=== PATIENT | male | born 1955 | race Caucasian/White ===

== ENCOUNTER 2021-09-26 16:55 | Outpatient (REF) | payer MEDICARE, BC, SELFPAY ==
[2021-09-26 19:47] LABS: Anion Gap 8.6 mmol/L (3-11); BUN 11 mg/dL (7-18); CO2 28.4 mmol/L (21.0-32.0); CREATININE 0.8 mg/dL (0.70-1.30); Calcium 8.8 mg/dL (8.5-10.1); Calculated LDL 124 mg/dL (<100); Chloride 103 mmol/L (98-107); Cholesterol 208 mg/dL (<200); Glucose 94 mg/dL (74-106); HDL Cholesterol 75 mg/dL (40-60); Potassium 4.1 mmol/L (3.5-5.1); Sodium 140 mmol/L (136-145); TSH 1.35 uIU/mL (0.36-3.74); Triglyceride 49 mg/dL (<150)
== END 2021-09-26 16:56 | disposition home or self-care (01) ==
LOC: NCHCN 16:55
PROVIDERS: PCP Physician Assistant Medical; Visit Provider Internal Medicine
DX: R03.0 Elevated blood-pressure reading, without diagnosis of hypertension (principal); D75.1 Secondary polycythemia; T14.90XA Injury, unspecified, initial encounter; Z72.89 Other problems related to lifestyle; X58.XXXA Exposure to other specified factors, initial encounter; F10.10 Alcohol abuse, uncomplicated; I10 Essential (primary) hypertension; E78.5 Hyperlipidemia, unspecified
CPT/HCPCS: 80048; 80061; 84443

== ENCOUNTER 2021-12-29 17:24 | Outpatient (REF) | payer MEDICARE, BC, SELFPAY ==
[2021-12-29 19:13] LABS: Abs Immature Grans 0.01 10^3/uL (0.0-0.06); Absolute Basophil Count 0.03 10^3/uL (0.0-0.2); Absolute Eosinophil Count 0.06 10^3/uL (0.0-0.7); Absolute Lymphocyte Count 0.93 10^3/uL (1.2-3.4); Absolute Monocyte Count 0.55 10^3/uL (0.1-0.8); Absolute Neutrophil Count 3.52 10^3/uL (1.2-6.7); Basophils % 0.6; Eosinophils % 1.2; HCT 45.9 % (40.0-50.0); HGB 16.6 g/dL (13.5-17.5); Immature Grans % 0.2; Lymphocytes % 18.2; MCH 32.7 pg (27.0-33.0); MCHC 36.2 % (32.0-36.0); MCV 91 fL (80-95); MPV 9.5 fL (8.0-11.0); Monocytes % 10.8; Platelet Count 299 10^3/uL (130-400); RBC 5.07 10^6/uL (4.36-5.78); RDW 12.8 % (11.8-14.1); RDW-SD 42.1 fL
== END 2021-12-29 17:25 | disposition home or self-care (01) ==
LOC: NCHCN 17:24
PROVIDERS: PCP Physician Assistant Medical; Visit Provider Nurse Practitioner Family
DX: H92.20 Otorrhagia, unspecified ear (principal)
CPT/HCPCS: 85025; 85610; 85730

== ENCOUNTER 2023-04-06 19:07 | Outpatient (REF) | payer MEDICARE, BC, SELFPAY ==
[2023-04-06 18:53] LABS: HCT 48.3 % (40.0-50.0); HGB 17.3 g/dL (13.5-17.5); MCH 32.5 pg (27.0-33.0); MCHC 35.8 % (32.0-36.0); MCV 91 fL (80-95); MPV 9.8 fL (8.0-11.0); Platelet Count 291 10^3/uL (130-400); RBC 5.33 10^6/uL (4.36-5.78); RDW 12.3 % (11.8-14.1); RDW-SD 40.8 fL; WBC 6.64 10^3/uL (4.4-10.8)
[2023-04-06 19:22] LABS: ALT 69 U/L (16-63); AST 47 U/L (15-37); Albumin 4.2 g/dL (3.4-5.0); Alkaline Phosphatase 78 U/L (46-116); Anion Gap 6.5 mmol/L (3-11); BUN 10 mg/dL (7-18); Bilirubin, Total 0.6 mg/dL (0.2-1.0); CO2 28.5 mmol/L (21.0-32.0); CREATININE 0.9 mg/dL (0.70-1.30); Calcium 9.1 mg/dL (8.5-10.1); Chloride 103 mmol/L (98-107); Estimated GFR 93.03 (mL/min/1.73m2); Ferritin 842 ng/mL (26-388); Glucose 91 mg/dL (74-106); Potassium 3.9 mmol/L (3.5-5.1); Sodium 138 mmol/L (136-145); Total Protein 8.3 g/dL (6.4-8.2)
[2023-04-06 19:37] LABS: Iron 173 ug/dL (65-175); Total Iron Binding Capacity 309 ug/dL (250-450); Transferrin Sat 56 % (20-55)
[2023-04-09 18:05] LABS: Erythropoietin 8.6 mIU/mL (2.6 - 18.5)
== END 2023-04-06 19:08 | disposition home or self-care (01) ==
LOC: NCHCN 19:07
PROVIDERS: PCP Internal Medicine; Visit Provider Internal Medicine
DX: D75.1 Secondary polycythemia (principal); R79.89 Other specified abnormal findings of blood chemistry; F10.20 Alcohol dependence, uncomplicated
CPT/HCPCS: 80053; 82668; 85027; 82728; 83540; 83550

== ENCOUNTER → 2023-05-14 01:34 | Outpatient (CLI) | payer MEDICARE, BC, SELFPAY ==
--- NOTE | 2023-05-14 | DI.MRI_ITS ---
Exam(s) MR LOWER JOINT LT WO EXAM: MR LOWER JOINT LT WO CLINICAL HISTORY: DERANGEMENT OF MEDIAL MENISCUS, M23.309. TECHNIQUE: Multiplanar multisequence MRI was performed. COMPARISON: No exams were available for comparison FINDINGS: The examination is limited due to patient motion artifact. BONES: No evidence of a fracture. Marrow edema seen in the posterior aspect of the lateral tibial pl ateau. JOINTS: There is marked thinning of the articular cartilage in the medial femoral tibial joint with s ubchondral edema in the proximal tibia and medial femoral condyle. There also cartilage defect seen in the lateral femoral tibial joint. There is a moderate joint effusion. There are osteophytes in t he medial and lateral femoral tibial joint. TENDONS: Extensor mechanism: Unremarkable. Medial retinaculum: Unremarkable. Lateral retinaculum: Unremarkable. Popliteus: There is hyperintense signal seen at the musculotendinous junction of the popliteus. Find ings are suspicious for partial tear. MUSCLES: Unremarkable. MENISCI: There is loss of size of the posterior body and posterior horn of the medial meniscus with h yperintense signal seen in the remnant. There does appear to be displacement of meniscal tissue medi ally. There is poor visualization of the root of the lateral meniscus suspicious for tear. The paola ami of the lateral meniscus is unremarkable. SOFT TISSUES: There is a small popliteal cyst. LIGAMENTS: Anterior Cruciate: There is a tear of the anterior cruciate ligament. Posterior Cruciate: There is mild hyperintense signal seen in the proximal posterior cruciate ligamen t suspicious for partial tear. Medial Collateral:There is mild hyperintense signal seen around the medial collateral ligament sugges ting a mild sprain. Lateral Collateral: There is mild hyperintense signal seen around the lateral collateral ligament whi ch may represent a mild sprain. OTHER: IMPRESSION: 1. Tear of the posterior horn and body of the medial meniscus with displacement of meniscal tissue me dially. 2. Anterior cruciate ligament tear. 3. Findings suspicious for partial tear of the posterior cruciate ligament. 4. Hyperintense signal at the musculotendinous junction in the popliteus suspicious for partial tear. 5. Marked arthrosis of the knee particularly involving the medial femoral tibial joint. 6. Moderate joint effusion. 7. Findings suspicious for tear of the root of the lateral meniscus. DATA REPOSITORY:
== END ==
PROVIDERS: PCP Internal Medicine; Visit Provider Internal Medicine
DX: M23.222 Derangement of posterior horn of medial meniscus due to old tear or injury, left knee (principal)
CPT/HCPCS: 73721

== ENCOUNTER 2023-06-01 09:00 | Outpatient (CLI) | payer MEDICARE, BC, SELFPAY ==
--- NOTE | 2023-06-01 08:30 | DI.RAD_ITS ---
Exam(s) XR KNEE LT 3V AP,LAT,JANEL EXAM: XR KNEE LT 3V AP,LAT,JANEL CLINICAL HISTORY: LEFT KNEE PAIN. TECHNIQUE: 2D digital imaging was performed of the left knee. Three images were obtained. AP, late ral and PA tunnel views were obtained. COMPARISON: MR MR LOWER JOINT LT WO from 05/14/2023 FINDINGS: BONES: No acute fracture is present. No bony destructive lesion is seen. JOINTS: There is moderate narrowing of the medial femoral tibial joint. Osteophytes are seen involvi ng all 3 joint compartments. There is a small joint effusion. No loose body. SOFT TISSUE: Vascular calcifications are present. IMPRESSION: Moderately severe degenerative changes of the left knee. DATA REPOSITORY: RADIATION DOSE DELIVERED:
== END 2023-06-01 09:01 | disposition home or self-care (01) ==
LOC: DIORS 09:00
PROVIDERS: PCP Internal Medicine; Referring Provider Internal Medicine; Visit Provider Physician Assistant
DX: M17.12 Unilateral primary osteoarthritis, left knee
CPT/HCPCS: 20610; 73562; 99203; J1040

== ENCOUNTER 2023-06-15 14:58 | Outpatient (CLI) | payer MEDICARE, BC, SELFPAY ==
[2023-06-15 23:38] LABS: Hepatitis B Surface Ag Negative (Negative)
[2023-06-16 00:05] LABS: Hepatitis C Ab w Rflx HCV PCR Negative (Negative)
[2023-06-20 18:32] LABS: Result Summary NEGATIVE; Specimen WB Whole Blood
[2023-06-28 11:39] LABS: JAK2 Sequencing Result see interpretation
== END 2023-06-15 14:59 | disposition home or self-care (01) ==
LOC: LBO 14:59
PROVIDERS: PCP Internal Medicine; Visit Provider Internal Medicine
DX: D75.1 Secondary polycythemia (principal); R94.5 Abnormal results of liver function studies; R74.8 Abnormal levels of other serum enzymes
CPT/HCPCS: 0027U; 36415; 81256; 86803; 87340

== ENCOUNTER → 2023-09-10 02:39 | Outpatient (CLI) | payer MEDICARE, BC, SELFPAY ==
--- NOTE | 2023-09-10 | DI.US_ITS ---
Exam(s) US AAA SCREENING EXAM: US AAA SCREENING CLINICAL HISTORY: HTN I10 AND FH ANEURYSM COMPARISON: No exams were available for comparison FINDINGS: Abdominal Aorta: Proximal: 2.9 cm Mid: 2.5 cm Distal: 2.0 x 2.6 cm Iliacs: Right: 1.4 cm Left: 1.4 cm IMPRESSION: No evidence of abdominal aortic aneurysm. DATA REPOSITORY:
== END ==
PROVIDERS: PCP Internal Medicine; Visit Provider Internal Medicine
DX: Z13.6 Encounter for screening for cardiovascular disorders (principal); I10 Essential (primary) hypertension; Z82.49 Family history of ischemic heart disease and other diseases of the circulatory system
CPT/HCPCS: 76706; 99213

== ENCOUNTER 2023-10-19 01:42 | Outpatient (CLI) | payer MEDICARE, BC, SELFPAY ==
[2023-10-19 11:26] LABS: HGB 17.1 g/dL (13.5-17.5); MCH 33.2 pg (27.0-33.0); MCHC 35.6 % (32.0-36.0); MCV 93 fL (80-95); MPV 9.5 fL (8.0-11.0); Platelet Count 292 10^3/uL (130-400); RBC 5.15 10^6/uL (4.36-5.78); RDW 12.3 % (11.8-14.1); RDW-SD 42.7 fL; WBC 6.04 10^3/uL (4.4-10.8)
[2023-10-19 11:53] LABS: Anion Gap 7.4 mmol/L (3-11); BUN 8 mg/dL (7-18); CO2 31.6 mmol/L (21.0-32.0); CREATININE 0.9 mg/dL (0.70-1.30); Calcium 9.1 mg/dL (8.5-10.1); Chloride 103 mmol/L (98-107); Estimated GFR 93.03 (mL/min/1.73m2); Glucose 98 mg/dL (74-106); Potassium 3.8 mmol/L (3.5-5.1); Sodium 142 mmol/L (136-145)
== END 2023-10-19 01:43 | disposition home or self-care (01) ==
LOC: LBO 01:42
PROVIDERS: PCP Internal Medicine; Visit Provider Student in an Organized Health Care Education/Training Program
DX: M17.12 Unilateral primary osteoarthritis, left knee (principal); Z01.818 Encounter for other preprocedural examination
CPT/HCPCS: 36415; 80048; 85027; 73560; 77073

== ENCOUNTER 2023-10-19 10:43 | Outpatient (CLI) | payer MEDICARE, BC, SELFPAY ==
--- NOTE | 2023-10-19 09:00 | DI.RAD_ITS ---
Exam(s) XR KNEE LT 1V XR STANDING ALIGNMENT EXAM: XR STANDING ALIGNMENT and XR knee LT 1 V CLINICAL HISTORY: left knee DJD. TECHNIQUE: 2D digital imaging was performed. Five images were obtained. COMPARISON: CR XR KNEE LT 3V AP,LAT,JANEL from 06/01/2023 FINDINGS: BONES: Moderately severe degenerative changes are seen in the hips characterized by joint space narro wing and osteophytes. Moderate degenerative changes are seen in the right knee particularly the medi al femoral tibial joint where there is joint space narrowing and osteophytes. Old well corticated os seous density is seen medial to the medial femoral condyle. Tricompartment moderately severe degener ative changes are seen in the left knee characterized by joint space narrowing and osteophytes. Ther e is a small joint effusion. The ankles are well maintained.There is no significant leg length discr epancy. SOFT TISSUE: Vascular calcifications are present. IMPRESSION: Marked osteoarthritis of the knees, left greater than right. DATA REPOSITORY: RADIATION DOSE DELIVERED:
== END 2023-10-19 10:44 | disposition home or self-care (01) ==
LOC: DIORS 10:43
PROVIDERS: PCP Internal Medicine; Referring Provider Internal Medicine; Visit Provider Physician Assistant
DX: M17.12 Unilateral primary osteoarthritis, left knee (principal); Z01.818 Encounter for other preprocedural examination
CPT/HCPCS: 73560; 77073

== ENCOUNTER 2023-10-30 09:44 | Day surgery (SDC) | payer MEDICARE, BC, SELFPAY ==
[2023-10-30] VITALS (30 sets, daily range): BP systolic 87–166; BP diastolic 60–96; PULSE 54–66; RESP 12–19; TEMP 35.8–36.7; O2SAT 95–99; BMI 26.9
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
[2023-10-30] MEDS: Gabapentin 300 MG CAP PO (10:27)
[2023-10-30] MEDS: Acetaminophen 500 MG TAB 1000 MG PO (10:28)
[2023-10-30] MEDS: Celecoxib 200 MG CAP 400 MG PO (10:28)
[2023-10-30] MEDS: Lactated Ringers 1,000 ML 80 ML IV (10:40)
[2023-10-30] MEDS: ceFAZolin 2 GM/50 ML BAG IVPB (12:15)
[2023-10-30] MEDS: TRANEXAMIC ACID/SOD. CHL. 1,000 MG/100 ML BAG 600 MG IVPB (12:25)
--- NOTE | 2023-10-30 12:40 | W.ANESNERVE ---
Nerve Block Single Injection Procedure Date and Time Date Performed: 10/30/23 Procedure Start: 11:40 Location Where Procedure Performed Procedure Location: Day Surgery Unit Reason Performed: Postoperative Analgesia Requesting Provider: Finesse Horton Timeout Performed Timeout Performed: Yes Monitoring Used ECG, Blood Pressure, SpO2 and See EMR for corresponding vital signs Sterility Sterility: Hand Hygiene, Surgical Cap, Surgical Mask, Sterile Gloves and Chlorhexidine Sedation Given During Procedure Sedation Given (Indicate Dose Given): No Sedation given Patient Mental Status Patient Mental Status: Awake Nerve Block 1st Nerve Block: Laterality: Left Block Type: Adductor Canal Ultrasound Image Saved?: Yes Needle / Catheter Used: 100mm SonoPlex II Local Anesthetic Bolus (Indicate Dose Given): Lidocaine used for local infiltration of skin, Injected in 3-5ml increments after negative blood aspiration, Bupivacaine 0.25% Dose:: 10ml and Exparel Dose:: 10ml Additives (Indicate Dose Given): None Ultrasound: Sterile probe cover and gel used Nerve Stimulator: Not Used Paresthesia: None Procedure Tolerated: No Complications and Patient tolerated well Procedure Outcome: Successful Performed By: Juan Osuna
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
--- NOTE | 2023-10-30 14:29 | W.ANESPOSTOP ---
Postoperative Evaluation Date, Time and Location Date Performed: 10/30/23 Time Performed: 14:29 Patient Location: PACU Vital Signs Most Recent Imported Vital Signs: Most Recent Vital Signs Temp Pulse Resp BP Pulse Ox 36.6 C 57 L 13 133/81 98 10/30/23 14:26 10/30/23 14:26 10/30/23 14:26 10/30/23 14:10/30/23 14:26 Pain Score Most Recent Pain Score: Most Recent Pain Score Pain Level 0 10/30/23 14:25 Assessment Mental Status: Awake (Alert & Oriented to Patient Baseline) Airway and Respiratory Function: Patent airway with normal (patient baseline) respiratory exam Cardiovascular Function: Hemodynamically Stable Hydration Status: Adequately Hydrated Nausea & Vomiting: No Nausea or Vomiting Pain: Pt. Denies Any Pain Peripheral Nerve Block: Regional nerve block not resolved at time of post operative discharge
--- NOTE | 2023-10-30 16:21 | IN_ITS ---
PT Notes Visit Reasons: Left knee DJD Physical Therapy Day Surgery Initial Evaluation Date: 10/30/2023 Referring Doctor: Dr. Horton PT Orders: PT CONSULT: Assess for discharge status post Ortho surgery Precautions: WBAT left lower extremity, Patient Profile/Admitting Diagnosis: Patient is 68-year-old male presenting status post elective left TKA on 10/30/2023. Postop uncomplicated. PMHX: CHANTELLE DJD Left knee Left eye trauma From tree falling - damage to his retinaHx of rheumatoid arthritis Pt reports in remission ~15 years - flared after his left RTC surgery seen previously by [facility] RheumatologyErectile dysfunction Wedge compression fracture of T7-T8 vertebra, initial encounter for closed fracture Constipation Polycythemia Alcohol consumption heavy 6-12 beers daily Elevated blood pressure reading without diagnosis of hypertension Bleeding from ear Hematotympanum Surgical History (Updated 10/19/23 @ 10:21 by Yen Sandoval) History of rotator cuff surgery Left Social History/Home Situation: Patient lives with in home with 2 steps to enter with no railing. Patient reports his 2 dogs. He is retired but continues to participate in his [employer] business. He reported the first step is a stone step then second step onto some porch. He reports he has a walk-in tub (patient educated not to submerge in tub at this time). (+)drives. 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 Equipment Owned/DME: No DME at home; nurse issued front wheel walker properly fitted Subjective: Patient reports his left knee feels better than it did 2 days ago. Denies dizziness lightheadedness nausea . Patient's reports she feels comfortable performing the 2 stairs with front wheel walker as instructed. Objective: General Observation: Semireclined on stretcher with Cryo/Cuff in place to left knee; present at bedside agreeable to assessment Mental Status: Alert and oriented x 4 Pain: At rest: 1/10; after ambulation: 3/10 ROM: Within normal limits bilateral upper extremity and right lower extremity Left Lower Extremity: Hip and ankle within normal limits; knee 0 to 98 degrees Strength: Right Upper Extremity: 5/5 Left Upper Extremity: 5/5 Right Lower Extremity: 5/5 Left Lower Extremity: Hip 3- /5, knee: 3 -/5 quad, 2+/5 hamstring, ankle 3/ 5, strong QS (+) lag with LAQ and reduced range SLR Sensation: Intact Bed Mobility/Transfers: Supine to sit supervision Sit to stand supervision Stand to sit supervision Bed to chair supervision with FWW Gait: Ambulated 200 feet with FWW supervision reciprocal pattern decreased step length Stairs: 2 steps with FWW CGA Balance: Static Sitting: Normal Dynamic Sitting: Normal Static Standing: Good with FWW Dynamic Standing: Good- with FWW Special Tests: Mobility Limitations Standardized Measure [facility] 6 clicks Basic Mobility Inpatient Short Form: Raw Score: 23 CMS Score: 11.20% disability Informed Consent/Education: Patient instructed in purpose of PT consult. Packet containing TKA exercise protocol has been given to patient. Education and training on initial set of exercises that can be done at home have been completed with patient. Assessment: Patient presents with clinical signs and symptoms consistent with current/admitting diagnoses that have resulted to mobility limitations, gait instability, generalized weakness, and impairment of motor control as demonstrated by the following impairment level findings: 1. Decreased strength to left knee major muscle groups 2. Impaired standing balance 3. Limitation of joint range of motion in left knee Impairments are contributing to the following functional limitations: 1. Inability to safely ambulate without assistive device 2. Increase completion time for mobility ADL performance 3. Increased fall risk Patient is assessed as a moderate complexity based on the following: History: 68 year-old male with impairment level findings, functional limitations, and past medical history as indicated above Examination: Demonstrable impairment in strength, balance, and mobility level with underlying impairments and functional limitations as documented above Presentation: Stable Decision Making: Low Goals: N/A. Plan of Care/Treatment Plan: N/A. DISCHARGE RECOMMENDATIONS: Home with outpatient PT as scheduled TREATMENT CODE/TIME: 53388, [id number] Thank you for the opportunity to participate in the care of this patient. Please sign an return this page within 30 days if you agree with the above POC. Thank you! Physician Signature Date [facility]
--- NOTE | 2023-10-30 20:33 | ROE_ITS ---
Date of service: 10/30/23 Time of Service: 12:15 Operative Note Operative Note DATE OF PROCEDURE: 10/30/23 PRE-OP DIAGNOSIS: Left Knee Osteoarthritis POST-OP DIAGNOSIS: same PROCEDURE: Left Total Knee Replacement SURGEON: Finesse Horton PLUMBING MANAGER: Yen Sadnoval ANESTHESIA TYPE: Spinal Refer to Anesthesia Record ESTIMATED BLOOD LOSS: 50 PATHOLOGY: none sent TOURNIQUET TIME: 0 COMPLICATIONS: None Patient was transported to: PACU Patient's condition: stable Implants: 1. Depuy Attune Cementless Cruciate Retaining Femoral Component, Size 8 2. Depuy Attune Cementless Fixed Bearing Tibial Component, Size 7 3. Depuy Attune 8x5 CR/FB Poly 4. Depuy Attune Patellar Component, Size 38 Indications: I have seen Sonu in clinic for symptoms of knee arthritis, confirmed with radiographic findings. Niels has exhausted nonoperative methods and was having significant limitations in daily function and desired better function and less pain. I discussed the technical details of a knee replacement. I explained the risks of the procedure to include, but not limited to, bleeding, infection, pain, stiffness, fracture, damage to nerves and vessels, damage to muscles and tendons, loosening, need for repeat procedure, blood clot and cardiopulmonary demise. Despite these risks, he elected to proceed. Findings: There was significant signs of arthritis throughout the knee involving all three compartments. Procedure Description: Niels was greeted in the preoperative holding area where the correct side was identified and marked. The consent was reviewed with the patient and signed. The history and physical was updated. All questions were answered. Preoperative medications were administered: Acetaminophen 1000mg, Celebrex 400mg, and Gabapentin 300mg. An adductor canal block was then administered by the anesthesia team in the PACU. He was taken back to the operating room. A spinal anesthestic was then administered. The patient was placed into the supine position on the operating room table. A nonsterile tourniquet was placed high onto the leg but only used for cementing. Posts were placed for positioning during the procedure. All bony prominences were well padded. Prophylactic antibiotics in the form of Cefazolin were administered. 1g of Tranxemic Acid was given intravenously within 30 minutes of incision. The left leg was then prepped with Chloraprep and draped in a standard fashion with impervious stockinette. A second prep with Chloraprep was performed prior to application of Iodine impregnated skin protection. A timeout to confirm correct identity, side and site, procedure, allergies, anesthesia, and medical concerns was performed. With the knee in some flexion, a midline incision was made overlying the knee. Full thickness skin flaps were raised once the extensor mechanism was encountered. These were raised medially and laterally. Any bleeding was controlled with electrocautery. Once the extensor mechanism was fully exposed, a medial parapatellar arthrotomy was performed in a flexed position. All bleeding from the arthrotomy and the geniculate arteries was coagulated. A medial subperiosteal peel was performed with electrocautery to the midcoronal plane. Due to the significant varus deformity the entire medial tibial plateau was exposed. The fat pad was removed while keeping the patellar tendon protected. The anterior distal femur synovium was removed for later visualization. The ACL and PCL were resected and the anterior horn of the lateral meniscus was transected. The knee was then flexed with the patella everted. Large osteophytes from the tibia were removed. Large osteophytes from the femur were removed. Using a step drill, and based on preoperative templating, the femoral canal was entered. This was done with a step drill without any difficulty. The intramedullary distal femoral cut guide was inserted, set to a 5 degree valgus cut and 9mm cut thickness. The distal femoral cut guide was then held in position and pinned. With the soft tissues protected, the distal cut was performed. This was passed over a few times to ensure a planar cut. I then turned attention to the tibia. The extramedullary guide was placed onto the leg. The distal aspect was slid medial to adjust for position of center of ankle and stay in line with shaft of the tibia. Approximately 3-5 degrees of posterior slope was kept in the proximal cutting guide. The center of the guide was aligned with the PCL. The stylus was used to assess cut thickness. The medial side, most involved side, was set for a 4mm cut. This was then held in position and pinned into place with 2 additional pins and a cross pin for stability. The medial and lateral collateral ligaments were protected and the cut was performed. With this completed, it was assessed and noted to be of appropriate dimensions. The guide was removed. A spacer block was inserted and the knee was brought into e xtension. The 5mm spacer block provided full extension, without hyperextension and with stability of both the medial and lateral collateral ligaments was assessed. The pins from the femur and the tibia were then removed. The distal femur was then sized. The anterior stylus was placed onto the lateral ridge of the anterior femur. This indicated a size 8 femur. The external rotation of the guide was adjusted to 3 degrees to match the epicondylar axis, perpendicular to Spencer?s line. The 4-in-1 cutting guide was the placed. The posterior medial femur cut was evaluated and appeared of g ood thickness. The spacer block was inserted underneath the cutting guide and stability was confirmed in 90 degrees of flexion. An lonnie wing was used to confirm appropriate position of the anterior cut to avoid notching. This cutting guide was ensured to be flush on the cut surface and then pinned into place with headed pins. While protecting the soft tissues, quad tendon, and collateral ligaments, the anterior and posterior cuts were performed with a saw. The central two pins were removed and the posterior and anterior chamfers were cut next. The notch-cutting guide was placed. This was pinned to lateralize the femoral component as much as possible while keeping it flush on the cut surface. This was then pinned into position. A reciprocating saw was used to make the notch cut. A rasp smoothed the cut surfaces. The medial and lateral menisci were removed. A trial femoral component was then inserted, impacted down to the cut surfaces, and the lug holes were drilled. A provisional trial tibial component was placed and the knee was brought through range of motion. There was noted to be excellent extension and flexion. There was no significant instability. The patella was tracking without thumbs. A size 5mm polyethylene component provided the best range of motion and stability with less than 2mm gapping with medial and lateral stress and full extension without significant hyperextension. The tibial cut surface was fully exposed. The tibia was then sized as a 7. The tibia had been previously marked during trialing to correspond to the center of the tibial component to help with rotation. The trial was aligned to this orestes, approximately rotated to the medial 1/3rd of the tibial tubercle. The trial was pinned into place. The tibia was prepared with a reamer and a keel punch and lug holes. The knee was then brought into extension and the patella was measured as 31mm. Using the patellar clamp and cut guide, this was resected to a flat surface with at least 13mm of thickness remaining. The size 38 patella fit the best. This was oriented and then clamped into position. The lugs were drilled. The trial components were removed. The final components were opened on the back table. The periosteal and capsular tissues, especially posteriorly, around the knee were then systematically injected with a periarticular cocktail consisting of 246mg of Ropivacaine, 0.5mg of Epinephrine, 0.08mg of Clonidine, and 30mg of Ketorolac, diluted to 100cc. On the back table, with the implants opened, the cement was mixed. One batch of high viscosity cement was prepared with vacuum assistance. After the cement was ready a small amount was placed on the cut surface of the patella and the patellar button was clamped into position and held. While the cement was hardening, the cementless knee components were placed. Starting with the tibial component, the tibia was subluxed anteriorly and the lug holes of the component were lined up. The tibia was then impacted with an impactor and mallet until the tibial component was in contact with the tibia. The final polyethylene component was inserted. Then, the femoral component was inserted. The lug holes were aligned and the component was impacted into position. The knee was irrigated with Surgiphor Betadine solution. This was allowed to sit in the knee for 3 minutes and then it was irrigated out with saline. After the cement had finally cured, approximately 15min, the clamp was removed from the patella and the knee was taken through range of motion. The patella was tracking with a no-thumbs technique. The capsule was then reapproximated with a No. 1 Vicryl at multiple locations. The capsule was finally closed with a No. 2 Stratafix, barbed suture. The second dosing of 1g TXA was started. Deep tissues were then reapproximated with 0 Vicryl and 2-0 Vicryl. The skin was closed with a running 3-0 Monocryl in a subcuticular fashion. This was reinforced with skin glue. A Mepilex silver dressing was applied along with a [id number] SABINO wrap. A CryoCuff was applied. Niels was transferred to the hospital bed without difficulty an suffering no apparent complication. He has a good prognosis. Physical therapy will start today and without restrictions, weight-bearing as tolerated. Aspirin 81mg BID will be used for DVT prophylaxis.
== END 2023-10-30 16:20 | disposition home or self-care (01) ==
PROVIDERS: PCP Internal Medicine; Visit Provider Student in an Organized Health Care Education/Training Program
PROC: (CPT 27447; principal; 2023-10-30 12:30)
DX: M17.12 Unilateral primary osteoarthritis, left knee (principal); G47.33 Obstructive sleep apnea (adult) (pediatric); D45 Polycythemia vera
CPT/HCPCS: 27447; 76942; 97162; 97530; C1776; C9290; J0665; J0690; J1100; J2001; J2250; J2401; J2405; J2704

== ENCOUNTER 2023-11-12 15:30 | Outpatient (CLI) | payer MEDICARE, BC, SELFPAY ==
--- NOTE | 2023-11-12 09:00 | DI.RAD_ITS ---
Exam(s) XR KNEE LT 1V XR STANDING ALIGNMENT EXAM: XR STANDING ALIGNMENT CLINICAL HISTORY: 1ST POST OP L TKA. TECHNIQUE: 2D digital imaging was performed. Standing AP views were performed from the pelvis throu gh the ankles. COMPARISON: CR XR STANDING ALIGNMENT from 10/19/2023 CR XR KNEE LT 1V from 11/12/2023 FINDINGS: BONES: No acute fracture is present. No bony destructive lesion is seen. Leg length discrepancy: No significant overall leg length discrepancy. JOINTS: Knees: A left knee prosthesis has been placed since the prior exam. The alignment appears satisfactory. No abnormal surrounding lucencies. Moderate narrowing of the medial femoral tibial joint space of the right knee again noted. Periarticular spurring. The ankle joints are unremarkable. Hip joints: Prominent right acetabular spurring. Mild right hip joint space narrowing. SOFT TISSUE: Anterior soft tissue swelling at the left knee. IMPRESSION: Moderate degenerative changes of the right knee. Status post placement of left knee prosthesis. No significant leg length discrepancy. DATA REPOSITORY: RADIATION DOSE DELIVERED:
== END 2023-11-12 15:31 | disposition home or self-care (01) ==
LOC: DIORS 15:31
PROVIDERS: PCP Internal Medicine; Visit Provider Student in an Organized Health Care Education/Training Program
DX: Z96.652 Presence of left artificial knee joint (principal); Z47.1 Aftercare following joint replacement surgery
CPT/HCPCS: 73560; 77073

== ENCOUNTER → 2023-12-10 09:16 | Outpatient (BNVA) | payer MEDICARE, BC, SELFPAY | PROVIDERS: PCP Internal Medicine; Referring Provider Internal Medicine; Visit Provider Student in an Organized Health Care Education/Training Program | DX: Z47.1 Aftercare following joint replacement surgery (principal); Z96.652 Presence of left artificial knee joint | CPT/HCPCS: 99024 ==

== ENCOUNTER → 2024-01-21 09:52 | Outpatient (BNVA) | payer MEDICARE, BC, SELFPAY | PROVIDERS: PCP Internal Medicine; Referring Provider Internal Medicine; Visit Provider Student in an Organized Health Care Education/Training Program | DX: Z47.1 Aftercare following joint replacement surgery (principal); Z96.652 Presence of left artificial knee joint | CPT/HCPCS: 99024 ==

== ENCOUNTER 2024-06-16 15:16 | Outpatient (REF) | payer MEDICARE, BC, SELFPAY ==
[2024-06-16 19:16] LABS: HCT 50.2 % (40.0-50.0); HGB 17.9 g/dL (13.5-17.5); MCHC 35.7 % (32.0-36.0); MCV 93 fL (80-95); Platelet Count 289 10^3/uL (130-400); RBC 5.42 10^6/uL (4.36-5.78); RDW 12.4 % (11.8-14.1); WBC 3.81 10^3/uL (4.4-10.8)
[2024-06-16 19:26] LABS: BUN 7 mg/dL (7-18); CO2 30.9 mmol/L (21.0-32.0); CREATININE 0.9 mg/dL (0.70-1.30); Calcium 9.4 mg/dL (8.5-10.1); Chloride 103 mmol/L (98-107); Estimated GFR 92.45 (mL/min/1.73m2); Glucose 104 mg/dL (74-106); Potassium 4.8 mmol/L (3.5-5.1); Sodium 140 mmol/L (136-145)
[2024-06-16 19:27] LABS: Anion Gap 6.1 mmol/L (3-11)
== END 2024-06-16 15:17 | disposition home or self-care (01) ==
LOC: NCHCN 15:16
PROVIDERS: PCP Internal Medicine; Visit Provider Internal Medicine
DX: F10.20 Alcohol dependence, uncomplicated (principal)
CPT/HCPCS: 80048; 85027

== ENCOUNTER 2024-10-30 11:29 | Outpatient (CLI) | payer MEDICARE, BC, SELFPAY ==
--- NOTE | 2024-10-30 09:15 | DI.RAD_ITS ---
Exam(s) XR KNEE LT 2V AP,LAT EXAM: XR KNEE LT 2V AP,LAT CLINICAL HISTORY: ANNUAL F/U L TKA. TECHNIQUE: 2D digital imaging was performed. Two images were obtained. AP and lateral views were obtained. COMPARISON: CR XR KNEE LT 3V AP,LAT,JANEL from 06/01/2023 CR XR STANDING ALIGNMENT from 11/12/2023 CR XR KNEE LT 1V from 11/12/2023 FINDINGS: BONES: There are stable post operative changes of a left total knee arthroplasty present. No fracture or dislocation. JOINTS: The orthopedic hardware is in good position. No evidence of hardware loosening. SOFT TISSUE: Atherosclerotic calcification is present. IMPRESSION: Stable left total knee arthroplasty. DATA REPOSITORY: RADIATION DOSE DELIVERED:
== END 2024-10-30 11:30 | disposition home or self-care (01) ==
LOC: DIORS 11:30
PROVIDERS: PCP Internal Medicine; Visit Provider Student in an Organized Health Care Education/Training Program
DX: Z47.1 Aftercare following joint replacement surgery (principal); Z96.652 Presence of left artificial knee joint
CPT/HCPCS: 99212; 73560

== ENCOUNTER 2025-01-01 17:19 | Outpatient (REF) | payer MEDICARE, BC, SELFPAY ==
[2025-01-01 19:56] LABS: Cholesterol 203 mg/dL (<200); HDL Cholesterol 87 mg/dL (>or=40)
[2025-01-01 20:01] LABS: C & S Indicated? No; RBC Negative HPF (0-2); WBC Negative HPF (0-5)
[2025-01-02 21:09] LABS: PSA, Screening 1.5 ng/mL (<=4.5)
== END 2025-01-01 17:20 | disposition home or self-care (01) ==
LOC: NCHCN 17:19
PROVIDERS: PCP Internal Medicine; Visit Provider Nurse Practitioner Family
DX: Z13.6 Encounter for screening for cardiovascular disorders (principal); Z00.00 Encounter for general adult medical examination without abnormal findings
CPT/HCPCS: 80061; 84153; 81015